=== PATIENT | female | born 1995 | race Caucasian/White ===

== ENCOUNTER 2017-01-31 07:01 | Emergency (ER) | payer OTHER, SELFPAY ==
--- NOTE | 2017-02-21 08:03 | ER ---
ADMIT: 01/31/2017 RM/LOC: ER [facility] MR#: [id number] [address] [id number] [address] [address] [place] [id number] CELL Emergency Room Report SEX: F AGE: 21 : 1995 DATE: 01/31/2017 A 21-year-old, awoke with epigastric and right upper quadrant pain, sharp, crampy, nauseous. See T-sheet for history and physical. CBC was significant for white count of 11.8. Glucose of 104. Right upper quadrant ultrasound was negative. The patient is diagnosed with abdominal pain. GI cocktail relieved her symptoms. I prescribed Toradol. She is encouraged to follow up with her primary doctor this week, and avoid greasy meals and NSAIDs until seen by primary doctor. Kush Feliciano MD/ [place] JOB #: [id number] CC: Kush Feliciano MD, Attending Physician
== END 2017-01-31 09:32 | disposition home or self-care (01) ==
LOC: ER 07:01
DX: R10.11 Right upper quadrant pain (principal)